=== PATIENT | female | born 1965 | race Caucasian/White ===

== ENCOUNTER 2016-06-14 22:36 | Emergency (ER) | payer OTHER ==
--- NOTE | 2016-06-15 02:17 | ED NURSING NOTES ---
Clinical Report - Nurses [facility] [address] [place] [address] 06/14/2016 22:38 [id number] Triage time 22:40 Jun 14 2016. Acuity: LEVEL 3. Chief Complaint: SUICIDAL THOUGHTS. Alert. No acute distress. --22:44 Rula Swenson R.N. 22:40 06/14/16. BP: 150/100. HR: 128. RR: 12. O2 saturation: 99%. Temp: 98.4 F. --22:44 Rula Swenson R.N. Weight: 57.6 kg stated. Height/Length: 67 inches Per Patient. BMI: 19.9. --23:10 Rula Swenson R.N. Medications None. --22:41 Rula Swenson R.N. Allergies None. --22:41 Rula Swenson R.N. History Historian: patient. Arrived in police custody. Onset: just prior to arrival. 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 PAST MEDICAL HX: Immunizations: up-to-date. Last normal menstrual period was 2 weeks ago- weeks ago. SURGERY HX: No history of previous surgery. SOCIAL HX: Never smoker. Occasional alcohol use; consumes beer occasionally. Last drink was just prior to arrival. No infectious disease exposure. FALL RISK ASSESSMENT: Fall risk assessment completed. No fall risk identified. NUTRITIONAL RISK ASSESSMENT: The nutritional risk assessment revealed no deficiencies. FUNCTIONAL ASSESSMENT: Functional assessment: no impairments noted. LEARNING NEEDS ASSESSMENT: The learning needs assessment revealed no barriers. SKIN INTEGRITY ASSESSMENT: Skin integrity risk assessment completed. No skin integrity risk identified. --22:44 Rula Swenson R.N. Interventions ID band on patient. --22:44 Rula Swenson R.N. PHYSICAL ASSESSMENT Ambulatory to room. GENERAL / NEURO / PSYCH: Alert. Oriented X 4. Speech within normal limits. Patient's mood/affect appears tearful. Patient appears well-nourished and neat and clean. RESPIRATORY: Respirations not labored. CVS: Normal heart rate and rhythm. GI / : Abdomen nontender. SKIN: Skin is warm and dry. --22:47 Rula Swenson R.N. NURSING PROGRESS NOTES Patient gowned. Head of bed elevated. Suicide precautions initiated. Clothing / valuables removed (clothing placed in locker). Two patient identifiers checked. Call light placed in reach. Side rails up x 1. Bed placed in lowest position. Brakes of bed on. --22:52 Rula Swenson R.N. Warming measures: blanket applied. Lights dimmed. ( Patient offered PO fluids or food, updated patient regarding plan of care). --00:08 Lindsey Villegas Suicide precautions initiated: a safety sweep of the room is ongoing. Checks performed every 15 minutes. --01:26 Lindsey Villegas 01:40 06/15/16. ( PAT team here at bedside). --01:51 Lindsey Villegas. DISPOSITION / DISCHARGE Departure time: 02:41. Condition at departure: improved. ( was seen by Pat team and pt is driving herself home. Pt is alert and oriented x 4.). No learning barriers present. Discharge instructions provided and reviewed with the patient. Patient verbalized understanding. Written instructions provided in [place]. The patient was discharged by the physician. She was discharged home and unaccompanied at time of discharge. She left the Emergency Department ambulatory and via private vehicle. Patient driving. --02:42 Riccardo Fitch R.N. 02:40 06/15/16. BP: 132/74. HR: 92. RR: 15. O2 saturation: 98%. Pain level now 0/10. --02:42 Riccardo Fitch R.N. Locked/Released at 06/15/2016 2:42 by Riccardo Fitch R.N.
--- NOTE | 2016-06-15 02:17 | ED CLINICAL REPORT ---
Clinical Report - Physicians/Mid Levels [facility] [address] [place] [address] 06/14/2016 22:38 Patient: BETINA RODRIGUEZ Time Seen: 2240. Arrived- (police). Historian- patient (police). Referred (law enforcement). HISTORY OF PRESENT ILLNESS Chief Complaint: DEPRESSED. This started past few days. The patient has experienced situational problems related to spouse and work. Recent alcohol consumption. Has been depressed. No delusions, suicidal thoughts, self-injury inflicted or hallucinations. The symptoms are described as moderate. No injury is present. Additional history - took gun out of house. Similar symptoms previously: Recent medical care: Not recently seen/assessed. REVIEW OF SYSTEMS No chest pain, abdominal pain, vomiting, diarrhea or black stools. No difficulty breathing or skin rash. All systems otherwise negative, except as recorded above. PAST HISTORY See nurses notes. Additional Surgeries: no known surgeries. Medications: None. Allergies: None. SOCIAL HISTORY Never smoker. Alcohol use. No drug use. Has social support. Lives with family. Has place to stay. FAMILY HISTORY Negative. ADDITIONAL NOTES The nursing notes have been reviewed. PHYSICAL EXAM Vital Signs: 06/14/2016 22:40 BP: 150/100. HR: 128. RR: 12. O2 saturation: 99%. Temp: 98.4 F. Oxygen saturation normal. Appearance: Alert. No acute distress. Appearance is normal. (non-toxic, cooperative). Eyes: Pupils equal, round and reactive to light. Neck: Normal inspection. Neck supple. CVS: Normal heart rate and rhythm. Heart sounds normal. Respiratory: Breath sounds normal. Chest nontender. Abdomen: Soft and nontender. Skin: Skin warm and dry. Normal skin color. Normal skin turgor. Extremities: Extremities exhibit normal ROM. No lower extremity edema. No lower extremity edema. Psych / Neuro: Oriented X 3. Appears depressed. (affect congruent). Cognition normal. Thought process and content normal. Denies suicidal thoughts. Patient does not express homicidal thoughts. Insight and judgement normal. Cranial nerves normal (as tested). No cerebellar findings. No motor deficit. No sensory deficit. Reflexes normal. (no hallucinations). (expresses finacial frustrations and gets more depressed when thinking about the "hospital bill"). LABS, X-RAYS, AND EKG Laboratory Tests: UA-Culture if indicated: (THI: 06/14/2016 23:15) ( [facility] 06/14/2016 23:35) Final results Test Result Flag Units (Reference) URINE COLOR YELLOW URINE APPEARANCE CLEAR URINE GLUCOSE NEGATIVE (NEGATIVE) URINE BILIRUBIN NEGATIVE (NEGATIVE) URINE KETONE NEGATIVE (NEGATIVE) URINE SPECIFIC GRAVITY 1.010 (1.010-1.030) URINE PH 6.5 (5.0-8.0) URINE PROTEIN NEGATIVE (NEGATIVE) URINE UROBILINOGEN 0.2 EU/dL (0.2-1.0) URINE NITRITE NEGATIVE (NEGATIVE) URINE BLOOD NEGATIVE (NEGATIVE) URINE LEUK ESTERASE NEGATIVE (NEGATIVE) URINE RBC NONE SEEN rbc/hpf (0-1) URINE WBC 0-1 wbc/hpf (0-1) URINE EPITHELIAL CELLS 0-1 EPI/hpf (0-5) URINE BACTERIA NONE SEEN (NONE SEEN) URINE COMMENT CULT NOT INDICATED URINE CULTURES ARE SET-UP BASED ON THE FOLLOWING CRITERIA:POSITIVE NITRITEPOSITIVE LEUKOCYTE ESTERASEGREATER THAN 10 WHITE BLOOD CELLSMODERATE (2+) OR GREATER BACTERIA Urine: (THI: 06/14/2016 23:15) ( [facility] 06/14/2016 23:26) Final results Test Result Flag Units (Reference) URINE NEGATIVE CBC w Diff: (THI: 06/14/2016 22:58) ( [facility] 06/14/2016 23:08) Final results Test Result Flag Units (Reference) WHITE BLOOD COUNT 6.4 K/uL (4.5-11.5) RED BLOOD COUNT 4.18 M/uL (4.00-5.20) HEMOGLOBIN 12.2 gm/dL (12.0-16.0) HEMATOCRIT 37.1 % (36.0-46.0) MEAN CELL VOLUME 89 fL (80-100) MEAN CORPUSCULAR HGB 29 pg (26-34) MEAN CORPUSCULAR HGB CONC 33 g/dL (31-37) RED CELL DISTRIBUTION WIDTH 12.9 % (11.6-14.8) PLATELET COUNT 429 H K/uL (150-400) NEUTROPHIL % 51.6 % (50-75) LYMPH % 36.2 % (25-40) MONO % 7.3 % (3-14) EOSINOPHIL % 4.3 H % (0-4) BASOPHIL % 0.6 % (0-2) PT with INR: (THI: 06/14/2016 22:58) ( [facility] 06/14/2016 23:19) Final results Test Result Flag Units (Reference) INR 0.9 (0.8-1.2) Low Intensity Therapy: INR 1.5-2.0 PT range 18.5-23.1Mod.Intensity Therapy: INR 2.0-3.0 PT range 23.1-31.5High Intensity Therapy: INR 2.5-3.5 PT range 27.4-35.5High Intensity Therapy 2: INR 3.0-4.0 PT range 31.5-39.3 Urine Drug Screen: (THI: 06/14/2016 23:15) ( [facility] 06/14/2016 23:39) Final results Test Result Flag Units (Reference) AMPHETAMINE/METHAMPHETAMINE NEGATIVE (NEGATIVE) BARBITURATE NEGATIVE (NEGATIVE) BENZODIAZEPINE NEGATIVE (NEGATIVE) CANNABINOID NEGATIVE (NEGATIVE) COCAINE NEGATIVE (NEGATIVE) ECSTASY NEGATIVE (NEGATIVE) METHADONE NEGATIVE (NEGATIVE) OPIATE NEGATIVE (NEGATIVE) The urine drug screen is a qualitative screening test fordrug overdose and abuse. All screen results should beconsidered as presumptive.Drugs screened for are as follows:BenzodiazepinesCocaineAmphetamines/MetamphetaminesTHC (Tetrahydrocannabinol)OpiatesBarbituratesEcstasyMethadonePositive results are unconfirmed. For confirmation, notifythe lab for the specimen to be sent to the reference lab.All confirmations must be performed by a differentmethodology.The ingestion of natural herbal and plant productscontaining Ephedra/Ephedra metabolites can produce in urineone or more substances capable of cross reacting withamphetamine/methamphetamine immunoassays. These testsprovide a preliminary result only. A more specificalternative chemical method must be used to obtain aconfirmed analytical result. Salicylate Level: (THI: 06/14/2016 22:58) ( [facility] 06/14/2016 23:22) Final results Test Result Flag Units (Reference) SALICYLATE <2.8 L mg/dL (2.8-20) CMP: (THI: 06/14/2016 22:58) ( [facility] 06/14/2016 23:36) Final results Test Result Flag Units (Reference) GLUCOSE 112 H mg/dL (70-110) BUN 9 mg/dL (7-18) CREATININE 0.8 mg/dL (0.6-1.3) Estimated GFR >60 mL/min Estimated GFR- >60 mL/min Note: Persistent reduction over 3 months in eGFR<60 mL/min/1.73 m2 defines CKD. Patients with eGFR values>=60 mL/min/1.73 m2 may also have CKD if evidence ofpersistent proteinuria. Additional information may be foundat www.kidney.org. SODIUM 144 mmol/L (136-145) POTASSIUM 3.3 L mmol/L (3.5-5.1) CHLORIDE 105 mmol/L (98-107) CARBON DIOXIDE 26 mmol/L (21-32) CALCIUM 9.0 mg/dL (8.5-10.1) TOTAL PROTEIN 7.7 g/dL (6.4-8.2) ALBUMIN 4.2 g/dL (3.3-5.0) BILIRUBIN, TOTAL 0.2 mg/dL (0.0-1.0) ALKALINE PHOSPHATASE 54 U/L (46-116) AST (SGOT) 12 L U/L (15-37) ALT (SGPT) 19 U/L (12-78) ETHYL ALCOHOL 92 H mg/dL (3-10) ACETAMINOPHEN < 2.0 L ug/mL (10-30) . PROGRESS AND PROCEDURES Course of Care: past medical history significant for suicide attempts presenting for evaluation of medical clearance. The patient is a citing several life stressors that have been bothering her recently. Patient reports difficulty with financial situation. Patient states that she has less money and her bank account and now in her 50s than she did when she was in her 20s. Patient states she lives in the garage at her house. Patient states that she owns the house however has to live in the garage to obtain rent. 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 Patient reports no suicidal ideation to me. patient appears to be under a significant amount of stress and not necessarily a danger to herself or others. Patient cites a breakdown and cry when thinking about the hospital bill. I discussion with patient in regards to her stay here in the hospital and injuring her safety as first parity. Patient is agreeable to the treatment and plan. We will have the crisis counselor, asked to evaluate her. Patient was cleared medically. Spoke to the crisis counseling recommended patient follow-up as an outpatient. Patient continues to not to be a danger to self or others. Patient without any hallucinations or delusions. Patient with linear goal oriented thinking. Was able to secure the firearms at home as well as account for thegun she had at home. Family is also contacted and the feel safe with watching the patient. Patient is encouraged to return to the emergency department or contact crisis hotline for any worsening of symptoms. Had a discussion patient in regards to her workup here in the emergency department, home care, follow-up, and return precautions. All questions have been answered. The patient expressed understanding of these instructions and was agreeable to them. Disposition: Discharged. Condition: good. CLINICAL IMPRESSION Adjustment disorder with depressed mood (acute). 06/14/2016 22:40 BP: 150/100. HR: 128. RR: 12. O2 saturation: 99%. Temp: 98.4 F. Oxygen saturation normal. Essential hypertension. INSTRUCTIONS Warnings: GENERAL WARNINGS: Return or contact your physician immediately if your condition worsens or changes unexpectedly, if not improving as expected, or if other problems arise. Specifically return if pain, vomiting, bleeding, breathing difficulty or fever. symptoms return. Your Current Medications: CONTINUE TAKING THE FOLLOWING MEDICATIONS: None*. Follow-up: Return to the emergency department as needed. Follow up with your doctor in one day. Reason for referral: recheck today's concerns. Summary of care provided to patient via paper. Screening today revealed the patient's blood pressure to be in the normal range. The patient should follow up with a primary care provider for blood pressure management. Understanding of the discharge instructions verbalized by patient. (Electronically signed by Vinay Pinto Dr. 06/18/2016 19:22)
--- NOTE | 2016-06-15 02:17 | ED NURSING NOTES ---
Clinical Report - Nurses [facility] [address] [place] [address] 06/14/2016 22:38 [id number] TRI[facility] Triage time 22:40 Jun 14 2016. Acuity: LEVEL 3. Chief Complaint: SUICIDAL THOUGHTS. Alert. No acute distress. --22:44 Rula Swenson R.N. 22:40 06/14/16. BP: 150/100. HR: 128. RR: 12. O2 saturation: 99%. Temp: 98.4 F. --22:44 Rula Swenson R.N. Weight: 57.6 kg stated. Height/Length: 67 inches Per Patient. BMI: 19.9. --23:10 Rula Swenson R.N. Medications None. --22:41 Rula Swenson R.N. Allergies None. --22:41 Rula Swenson R.N. History Historian: patient. Arrived in police custody. Onset: just prior to arrival. 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 PAST MEDICAL HX: Immunizations: up-to-date. Last normal menstrual period was 2 weeks ago- weeks ago. SURGERY HX: No history of previous surgery. SOCIAL HX: Never smoker. Occasional alcohol use; consumes beer occasionally. Last drink was just prior to arrival. No infectious disease exposure. FALL RISK ASSESSMENT: Fall risk assessment completed. No fall risk identified. NUTRITIONAL RISK ASSESSMENT: The nutritional risk assessment revealed no deficiencies. FUNCTIONAL ASSESSMENT: Functional assessment: no impairments noted. LEARNING NEEDS ASSESSMENT: The learning needs assessment revealed no barriers. SKIN INTEGRITY ASSESSMENT: Skin integrity risk assessment completed. No skin integrity risk identified. --22:44 Rula Swenson R.N. Interventions ID band on patient. --22:44 Rula Swenson R.N. PHYSICAL ASSESSMENT Ambulatory to room. GENERAL / NEURO / PSYCH: Alert. Oriented X 4. Speech within normal limits. Patient's mood/affect appears tearful. Patient appears well-nourished and neat and clean. RESPIRATORY: Respirations not labored. CVS: Normal heart rate and rhythm. GI / : Abdomen nontender. SKIN: Skin is warm and dry. --22:47 Rula Swenson R.N. NURSING PROGRESS NOTES Patient gowned. Head of bed elevated. Suicide precautions initiated. Clothing / valuables removed (clothing placed in locker). Two patient identifiers checked. Call light placed in reach. Side rails up x 1. Bed placed in lowest position. Brakes of bed on. --22:52 Rula Swenson R.N. Warming measures: blanket applied. Lights dimmed. ( Patient offered PO fluids or food, updated patient regarding plan of care). --00:08 Lindsey Villegas Suicide precautions initiated: a safety sweep of the room is ongoing. Checks performed every 15 minutes. --01:26 Lindsey Villegas 01:40 06/15/16. ( PAT team here at bedside). --01:51 Lindsey Villegas. DISPOSITION / DISCHARGE Departure time: 02:41. Condition at departure: improved. ( was seen by Pat team and pt is driving herself home. Pt is alert and oriented x 4.). No learning barriers present. Discharge instructions provided and reviewed with the patient. Patient verbalized understanding. Written instructions provided in Vietnamese. The patient was discharged by the physician. She was discharged home and unaccompanied at time of discharge. She left the Emergency Department ambulatory and via private vehicle. Patient driving. --02:42 Riccardo Fitch R.N. 02:40 06/15/16. BP: 132/74. HR: 92. RR: 15. O2 saturation: 98%. Pain level now 0/10. --02:42 Riccardo Fitch R.N. Locked/Released at 06/15/2016 2:42 by Riccardo Fitch R.N.
--- NOTE | 2016-06-15 02:17 | ED ORDER SUMMARY ---
..... Patient: BETINA RODRIGUEZ OrderSheet [facility] VisitID: [id number] [place] [address] 50y, F Registration Date/Time: 06/14/2016 ORDER SHEET Weight: 57.6 kg (stated) Allergies: None GENERAL ORDERS: CBC w Diff Urgent (22:50 06/14/2016 Nahid Garcia) (Ack 22:54 ALawrence ER Tech1) (23:00 ALawrence ER Tech1) CMP Urgent (22:50 06/14/2016 Nahid Garcia) (Ack 22:54 ALawrence ER Tech1) (23:00 ALawrence ER Tech1) UA-Culture if indicated Urgent (22:50 06/14/2016 Nahid Garcia) (Ack 22:54 ALawrence ER Tech1) (23:20 KKnefreeman R.N.) PT with INR Urgent (22:50 06/14/2016 Nahid Garcia) (Ack 22:54 ALawrence ER Tech1) (23:00 ALawrence ER Tech1) Urine Urgent (22:50 06/14/2016 Nahid Garcia) (Ack 22:54 ALawrence ER Tech1) (23:20 KKnebel R.N.) Urine Drug Screen Urgent (22:50 06/14/2016 Nahid Garcia) (Ack 22:54 ALawrence ER Tech1) (23:20 KKnebel R.N.) Salicylate Level Urgent (22:50 06/14/2016 Nahid Garcia) (Ack 22:54 ALawrence ER Tech1) (23:00 ALawrence ER Tech1) Ethyl Alcohol Urgent (22:50 06/14/2016 Nahid Garcia) (Ack 22:54 ALawrence ER Tech1) (23:00 ALawrence ER Tech1) Acetaminophen Level Urgent (22:50 06/14/2016 Nahid Garcia) (Ack 22:54 ALawrence ER Tech1) (23:00 ALawrence ER Tech1) MEDICATION ORDERS: IV FLUIDS: ORDER SHEET NOTES: [Electronically signed by Riccardo Fitch R.N. (02:42 06/15/2016)] [Electronically signed by Vinay Pinto Dr. (19:22 06/18/2016)] [Electronically locked/signed by Riccardo Fitch R.N. (02:42 06/15/2016)]
--- NOTE | 2016-06-15 02:17 | ED ORDER SUMMARY ---
..... Patient: BETINA RODRIGUEZ OrderSheet [facility] VisitID: [id number] [place] [address] 50y, F Registration Date/Time: 06/14/2016 ORDER SHEET Weight: 57.6 kg (stated) Allergies: None GENERAL ORDERS: CBC w Diff Urgent (22:50 06/14/2016 Nahid Garcia) (Ack 22:54 ALawrence ER Tech1) (23:00 ALawrence ER Tech1) CMP Urgent (22:50 06/14/2016 Nahid Garcia) (Ack 22:54 ALawrence ER Tech1) (23:00 ALawrence ER Tech1) UA-Culture if indicated Urgent (22:50 06/14/2016 Nahid Garcia) (Ack 22:54 ALawrence ER Tech1) (23:20 KKnefreeman R.N.) PT with INR Urgent (22:50 06/14/2016 Nahid Garcia) (Ack 22:54 ALawrence ER Tech1) (23:00 ALawrence ER Tech1) Urine Urgent (22:50 06/14/2016 Nahid Garcia) (Ack 22:54 ALawrence ER Tech1) (23:20 KKnebel R.N.) Urine Drug Screen Urgent (22:50 06/14/2016 Nahid Garcia) (Ack 22:54 ALawrence ER Tech1) (23:20 KKnebel R.N.) Salicylate Level Urgent (22:50 06/14/2016 Nahid Garcia) (Ack 22:54 ALawrence ER Tech1) (23:00 ALawrence ER Tech1) Ethyl Alcohol Urgent (22:50 06/14/2016 Nahid Garcia) (Ack 22:54 ALawrence ER Tech1) (23:00 ALawrence ER Tech1) Acetaminophen Level Urgent (22:50 06/14/2016 Nahid Garcia) (Ack 22:54 ALawrence ER Tech1) (23:00 ALawrence ER Tech1) MEDICATION ORDERS: IV FLUIDS: ORDER SHEET NOTES: [Electronically signed by Riccardo Fitch R.N. (02:42 06/15/2016)] [Electronically signed by Vinay Pinto Dr. (19:22 06/18/2016)] [Electronically locked/signed by Riccardo Fitch R.N. (02:42 06/15/2016)]
--- NOTE | 2016-06-18 19:22 | ED DISCHARGE INSTRUCTIONS ---
Patient: BETINA RODRIGUEZ General Instructions [facility] VisitID: [id number] [place] [address] 50y, F Registration Date/Time: 06/14/2016 Adjustment disorder with depressed mood (acute). 06/14/2016 22:40 BP: 150/100. HR: 128. RR: 12. O2 saturation: 99%. Temp: 98.4 F. Oxygen saturation normal. Essential hypertension. INSTRUCTIONS Warnings: GENERAL WARNINGS: Return or contact your physician immediately if your condition worsens or changes unexpectedly, if not improving as expected, or if other problems arise. Specifically return if pain, vomiting, bleeding, breathing difficulty or fever. symptoms return. Your Current Medications: CONTINUE TAKING THE FOLLOWING MEDICATIONS: None*. Follow-up: Return to the emergency department as needed. Follow up with your doctor in one day. Reason for referral: recheck today's concerns. Summary of care provided to patient via paper. Screening today revealed the patient's blood pressure to be in the normal range. The patient should follow up with a primary care provider for blood pressure management. Understanding of the discharge instructions verbalized by patient. ADDITIONAL INFORMATION Adjustment Disorder An adjustment disorder is a condition that results from having a hard time coping with the normal stresses of life. You may feel you have too much to do and cant get it all done. These feelings may be triggered by divorce, job loss, someone you know dying, or by a positive event like getting a new job or getting . These feelings may interfere with your relationships at home and at work. With this condition, it is common to feel sad, guilty, hopeless and restless. These feelings may continue for weeks or months. It can be helpful to identify what is causing the additional stress and takes steps to get extra support. If new stressful events do not occur, it is likely that you will start feeling better within six months. Home Care: If you have been given a prescription for medicine, take it as directed. It helps to talk about your feelings and thoughts with family or friends that understand and support you. Follow Up with your doctor or therapist as advised by our staff. Let them know if this condition lasts more than six months without sign of improvement. For more information, contact the National [place] [employer] Mental Illness at 189-651-4132 or visit www.fatoumata.org. Get Prompt Medical Attention if any of the following occur: Worsening depression or anxiety Feeling out of control Thoughts of harming yourself or another Being unable to care for yourself High Blood Pressure -- To Be Confirmed [No Tx] Your blood pressure was higher today than normal. Sometimes anxiety or pain can cause a temporary rise in blood pressure that later returns to normal. If your blood pressure is high on one measurement, this does not mean that you have hypertension (a chronic illness). However, you must have your blood pressure measured again within the next few days to find out if its still high. A normal blood pressure is 120/80 or less. The first (top) number is the "systolic" pressure. The second (bottom) number is the "diastolic" pressure. Hypertension exists when either the top number is 140 or higher, OR the bottom number is 90 or higher on repeated measurements. Blood pressure in the range of 120-140 (systolic) or 80-89 (diastolic) is considered "pre-hypertension". This means your are at risk for getting hypertension. You should have regular blood pressure checks to be sure your blood pressure is not rising. Home Care: Measure your blood pressure on 3 different days and write down the results. This can be done at your doctor's office or this facility. Some pharmacies and grocery stores offer automated blood pressure machines for your use. Follow Up: If your blood pressure is "high" (over 120/80) on 2 out of 3 days, you will need to follow up with your doctor for further evaluation and treatment. DO NOT PUT THIS OFF! Untreated high blood pressure increases the risk for heart attack, also known as acute myocardial infarction, or AMI, and stroke. It is a treatable condition. Get Prompt Medical Attention if any of the following occur: Chest pain or shortness of breath Severe headache Throbbing or rushing sound in the ears Nosebleed Sudden severe abdominal pain Extreme drowsiness, confusion or fainting Dizziness or vertigo (dizziness with spinning sensation) Weakness of an arm or leg or one side of the face Difficulty with speech or vision You have been given the following additional information: Adjustment Disorder Hypertension, To Be Confirmed (Electronically signed by Vinay Pinto Dr. 06/18/2016 19:22)
--- NOTE | 2016-06-18 19:22 | ED MAR SUMMARY ---
..... Medication Administration Record [facility] [address] [place], [place] [id number] Patient: SOCORRO RAMSEY BETINA A Visit ID: [id number] 50y, F Weight: 57.6 kg Height/Length: 67 in BMI: 19.9 ALLERGIES: None
--- NOTE | 2016-06-18 19:22 | ED MAR SUMMARY ---
..... Medication Administration Record [facility] [address] [place], [place] [id number] Patient: SOCORRO RAMSEY BETINA A Visit ID: [id number] 50y, F Weight: 57.6 kg Height/Length: 67 in BMI: 19.9 ALLERGIES: None
--- NOTE | 2016-06-18 19:22 | ED MED RECONCILIATION SUMMARY ---
Patient: BETINA RODRIGUEZ Medication Reconciliation Report [facility] VisitID: [id number] [address] [place] [address] 50y, F Registration Date/Time: 06/14/2016 Weight: 57.6 kg Height/Length: 67 in. BMI: 19.9 ALLERGIES: None The patient's Home Medications are listed below: NONE. The source(s) of the original Home Medication information: Not obtained. The following Medications were given to the patient in the Emergency Department: None. The following Medications were prescribed to the patient: None.
--- NOTE | 2016-06-18 19:22 | ED MED RECONCILIATION SUMMARY ---
Patient: BETINA RODRIGUEZ Medication Reconciliation Report [facility] VisitID: [id number] [address] [place] [place] [address] 50y, F Registration Date/Time: 06/14/2016 Weight: 57.6 kg Height/Length: 67 in. BMI: 19.9 ALLERGIES: None The patient's Home Medications are listed below: NONE. The source(s) of the original Home Medication information: Not obtained. The following Medications were given to the patient in the Emergency Department: None. The following Medications were prescribed to the patient: None.
== END 2016-06-15 02:31 | disposition home or self-care (01) ==
LOC: ED SRH 22:36
DX: F43.21 Adjustment disorder with depressed mood (principal); I10 Essential (primary) hypertension
CPT/HCPCS: 90004; 90074; 90100; 92010; 92760; 92761; 92762; 92763; 92764; 92765; 92766; 92767; 92780; 93070; 94060; 95059; 97000